=== PATIENT | male | born 2000 | race Two or more races ===

== ENCOUNTER 2024-01-28 21:20 | Emergency (ER) | payer OTHER ==
[~2024-01-28] VITALS: Ht 188 cm; Wt 74.7 kg
[2024-01-28] MEDS ORDERED: AUG875T PO (23:57)
--- NOTE | 2024-01-28 23:58 | ED.PDOC ---
Eye-HPI HPI Comments This is a 23-year-old male presents to the ED chief complaint flu-like symptoms x2 days. Patient states symptoms have been getting worse over the past 12 hours. Reports sore throat, throat swelling, neck swelling, difficulty swallowing, fever, chills, fatigue. Patient reports taking [id number] medications without any improvement in symptoms. Denies chest pain, difficulty breathing, shortness of breath, nausea, vomiting or diarrhea. Reports no recent travel or ill contacts. Chief Complaint: Flu like Time Seen by MD: 22:04 Reviewed Notes: Nurses Notes, Medications, Allergies Allergies: Coded Allergies: NO KNOWN ALLERGIES (Unverified , 01/28/24) Home Meds Active Scripts Amoxicillin & Pot Clavulanate (AUGMENTIN TABLET) 875 Mg Tb, 875 MG PO BID for 10 Days, #20 TAB Prov:JUSTIN ZHAO JEFFERSON 01/28/24 Information Source: Patient Mode of Arrival: Ambulatory Constitutional: reports: chills, fatigue, fever; denies: diaphoresis, malaise, sweats, weakness, others EENTM: reports: throat pain, throat swelling; denies: blurred vision, double vision, ear bleeding, ear discharge, ear drainage, ear pain, ear ringing, eye pain, eye redness, hearing loss, mouth pain, mouth swelling, nasal discharge, nose bleeding, nose congestion, nose pain, photophobia, tearing, voice changes, others Respiratory: denies: cough, hemoptysis, orthopnea, SOB at rest, shortness of breath, SOB with excertion, stridor, wheezing, others Cardiovascular: denies: chest pain, dizzy spells, diaphoresis, Dyspnea on exertion, edema, irregular heart beat, left arm pain, lightheadedness, palpitations, PND, syncope, others Gastrointestinal: denies: abdomen distended, abdominal pain, blood streaked bowels, constipated, diarrhea, dysphagia, difficulty swallowing, hematemesis, melena, nausea, poor appetite, poor fluid intake, rectal bleeding, rectal pain, vomiting, others Genitourinary: denies: burning, dysuria, flank pain, frequency, hematuria, incontinence, penile discharge, penile sore, pain, testicle pain, testicle swelling, urgency, others Neurological: denies: dizziness, fainting, headache, left sided numbness, left sided weakness, numbness, paresthesia, pre-existing deficit, right sided numbness, right sided weakness, seizure, speech problems, tingling, tremors, weakness, others Musculoskeletal: denies: back pain, gout, joint pain, joint swelling, muscle pain, muscle stiffness, neck pain, others Integumetry: denies: bruises, change in color, change in hair/nails, dryness, laceration, lesions, lumps, rash, wounds, others Allergic/Immunocompromised: denies: Difficulty Healing, Frequent Infections, Hives, Itching, others Hematologic/Lymphatic: denies: anemia, blood clots, easy bleeding, easy bruising, swollen glands, others Endocrine: denies: excessive hunger, excessive sweating, excessive thirst, excessive urination, flushing, intolerance to cold, intolerance to heat, unexplained weight gain, unexplained weight loss, others Psychiatric: denies: anxiety, bipolar disorder, depression, hopeless, panic disorder, schizophrenia, sleepless, suicidal, others Physical Exam General Appearance: No Apparent Distress, Normal HEENT: Normal ENT Inspection, Pharyngeal Erythema, TMs Normal, Tonsillar Exudate (Bilateral tonsils grade 3 with exudate erythema) Neck: Full Range of Motion, Non-Tender Respiratory: Lungs Clear, No Accessory Muscle Use, No Respiratory Distress, Normal Breath Sounds Cardiovascular: No Edema, No JVD, No Murmur, No Gallop, Normal Peripheral Pulses, Regular Rate/Rhythm Breast Exam: Deferred Gastrointestinal: Non Tender, Soft Genitalia: Deferred Pelvic: Deferred Rectal: Deferred Extremities: Normal capillary refill, Normal inspection, Normal range of motion, Non-tender, No pedal edema Musculoskeletal : Apperance: Normal Neurologic: Alert, general dentist II-XII nml as Tested, No Motor Deficits, Normal Affect, Normal Mood, No Sensory Deficits Cerebellar Function: Normal Reflexes: Normal Skin: Dry, Normal Color, Warm Lymphatic: Cervical Adenopathy (L), Cervical Adenopathy (R), No Adenopathy Was a procedure done? Was a procedure done?: No EENT DIFF Eye: N/A Sore Throat: Streptococcal X-Ray, Labs, Meds, VS Vital Signs Date Time Temp Pulse Resp B/P (MAP) Pulse Ox O2 Delivery O2 Flow Rate FiO2 01/29/24 00:15 89 18 94 Room Air* 0 21 01/29/24 00:15 99.0 89 18 118/67 (84) 94 99.0 01/28/24 21:24 98.9 102 20 127/81 (96) 95 Lab Test 01/28/24 23:13 Range/Units Influenza Type A Antigen Negative Negative Influenza Type B Antigen Negative Negative SARS-CoV-2 Antigen (Rapid) Negative NEGATIVE Current Medications Medications (Trade) Dose Ordered Sig/Jael Route Start Time Stop Time Status Last Admin Dexamethasone Sodium Phosphate (Decadron Injection) 10 mg ONCE ONCE IM 01/29/24 00:00 01/29/24 00:01 DC 01/29/24 00:17 X-Ray, Labs, Meds, VS Comment Labs: Influenza a and B negative COVID-19 antigen negative Likely Streptococcus pharyngitis on exam grade 3 tonsils with exudate and surrounding cervical adenopathy. We will start patient on trial of Augmentin twice daily times 10 days. Patient was given Decadron 10 mg IM during his stay he reports improvement in symptoms states he feels better prior to arrival in his requesting discharge at this time. Advised to rest, increase p.o. fluids with electrolytes. Ltin-[id number] Tylenol or Motrin as needed for pain and fever per labeled dosing instructions.. Advised to follow up with his PCP in 2- 3 days as necessary. Return here into the ED for increase and throat swelling, difficulty breathing, chest pain, shortness of breath, continued high fevers, or any concerning symptoms. Patient agrees with discharge plan of care. Time of 1ST Reevaluation: 23:50 Reevaluation 1ST: Improved Patient Education/Counseling: Diagnosis, Treatment, Prognosis, Need For Follow Up Family Education/Counseling: No Family Present Departure 1 Departure Time of Disposition: 23:57 Impression: Primary Impression: Pharyngitis Qualified Codes: J02.0 - Streptococcal pharyngitis Disposition: HOME / SELF CARE / HOMELESS Condition: Stable e-Prescriptions Amoxicillin & Pot Clavulanate (AUGMENTIN TABLET) 875 Mg Tb 875 MG PO BID for 10 Days, #20 TAB Prov: JUSTIN ZHAO 01/28/24 Discharged With: Self Critical Care Note Critical Care Time?: No Stability Stability form required: No JUSTIN ZHAO Jan 28, 2024 23:58
[2024-01-29 00:09] LABS: COVID19 ANTIGEN SOFIA FIA NEGATIVE (NEGATIVE); Rapid Influenza A Negative (Negative); Rapid Influenza B Negative (Negative)
[2024-01-29 00:15] VITALS: BP 118/67; PULSE 89; RESP 18; TEMP 99; O2SAT 94
[2024-01-29] MEDS: DexAMETHasone SOD PHOS 10MG/1ML VIAL INJ IM ONE (00:17)
== END 2024-01-29 00:21 | disposition home or self-care (01) ==
LOC: ER 21:20
DX: J02.9 Acute pharyngitis, unspecified (principal); Z20.822 Contact with and (suspected) exposure to COVID-19; Z79.899 Other long term (current) drug therapy
CPT/HCPCS: 36415; 87426; 87804; 96372; 99283; J1100